=== PATIENT | male | born 1945 | race Caucasian/White ===

== ENCOUNTER 2017-07-22 13:37 | Inpatient (IN) | payer OTHER ==
[~2017-07-22] VITALS: Ht 172.7 cm; Wt 80.3 kg
[2017-07-22] MEDS ORDERED: KRILL OIL 5001 EACH PO (14:22)
[2017-07-22] MEDS ORDERED: GLUCOSAMINE, CH1 TAB PO (14:23)
[2017-07-22] MEDS ORDERED: VITAMIN FLUSH-F1 CAP PO (14:24)
[2017-07-22] MEDS ORDERED: CALCIUM CARBON650 M2 PO (14:25)
[2017-07-22] MEDS ORDERED: PRILOSEC 20MG20 MG PO (14:26)
[2017-07-22] MEDS ORDERED: PRINIVIL5 MG PO (14:27)
[2017-07-22 14:28] LABS: BASO % 0.4 % (0.0-2.0); EOS # 0.1 (0.0-0.7); EOS % 0.6 % (0-4.0); GRAN # 7.9 (1.4-6.5); GRAN % 80.7 % (42.2-75.2); HEMATOCRIT 45.8 % (42.0-52.0); HEMOGLOBIN 15.9 g/dl (13.5-18.0); LYMPH % 9.9 % (20.0-51.0); MEAN CELL VOLUME 96 fl (80.0-100.0); MEAN CORPUSCULAR HEMOGLOBIN 33 pg (27.0-31.0); MEAN CORPUSCULAR HGB CONC 35 g/dl (33.0-37.0); MEAN PLATELET VOLUME 9.6 fl (7.4-10.4); MONO # 0.8 (0.1-0.6); PLATELET COUNT 248 K/mm3 (130-400); RED BLOOD COUNT 4.78 M/mm3 (4.20-5.60); WHITE BLOOD COUNT 9.8 K/mm3 (4.8-10.8)
[2017-07-22 14:31] LABS: PROTHROMBIN TIME 11.4 SECONDS (9.7-12.8)
[2017-07-22 14:33] LABS: PARTIAL THROMBOPLASTIN TIME 29.1 SECONDS (26.0-37.0)
[2017-07-22 14:40] LABS: ALANINE AMINOTRANSFERASE 246 U/L (21-72); ALBUMIN 4.6 gm/dL (3.5-5.0); ALKALINE PHOSPHATASE 282 U/L (50-136); AMYLASE 538 U/L (30-110); ANION GAP 14 mmol/L (7-16); BILIRUBIN,TOTAL 5.4 mg/dL (0.0-1.0); BLOOD UREA NITROGEN 12 mg/dL (9-20); CALCIUM 9.5 mg/dL (8.4-10.2); CARBON DIOXIDE 25 mmol/L (22-30); CHLORIDE 101 mmol/L (98-107); CREATININE, serum 0.79 mg/dL (0.66-1.25); GLUCOSE 125 mg/dL (74-106); POTASSIUM 3.6 mmol/L (3.4-5.0); SODIUM 140 mmol/L (137-145); TOTAL PROTEIN 7.8 gm/dL (6.4-8.2)
[2017-07-22 15:12] LABS: TROPONIN-I < 0.012 ng/mL (0.000-0.034)
[2017-07-22 16:09] LABS: COLLECTION METHOD CLEAN CATCH
[2017-07-22 17:03] LABS: MUCOUS Present /lpf; PH 7 (5-8); SQUAMOUS EPITHELIAL None Seen /hpf; URINE APPEARANCE Clear; URINE BACTERIA None Seen /hpf; URINE BILIRUBIN Negative (NEGATIVE); URINE BLOOD Negative (NEGATIVE); URINE COLOR Amber; URINE GLUCOSE Negative (NEGATIVE); URINE KETONE 1+ (NEGATIVE); URINE LEUKOCYTE ESTERASE Negative (NEGATIVE); URINE PROTEIN(semi-quant) Negative (NEGATIVE); URINE RBC None Seen /hpf; URINE UROBILINOGEN >=4.0 mg/dL (NEGATIVE); URINE WBC 0-2 /hpf
[2017-07-22 17:17] LABS: LIPASE 12225 U/L (23-300)
[2017-07-22 21:01] VITALS: BP 115/60; PULSE 70; TEMP 98.2
[2017-07-22 21:03] VITALS: BP 115/60; PULSE 70; TEMP 98.2
[2017-07-23] VITALS (8 sets, daily range): BP systolic 112–163; BP diastolic 52–72; PULSE 59–98; TEMP 97.9–99
[2017-07-23 07:23] LABS: BASO % 0.7 % (0.0-2.0); EOS # 0.1 (0.0-0.7); EOS % 2.1 % (0-4.0); GRAN # 2.3 (1.4-6.5); GRAN % 52.6 % (42.2-75.2); HEMATOCRIT 40.1 % (42.0-52.0); LYMPH # 1.4 (1.2-3.4); LYMPH % 31.8 % (20.0-51.0); MEAN CELL VOLUME 97 fl (80.0-100.0); MEAN CORPUSCULAR HEMOGLOBIN 33 pg (27.0-31.0); MEAN CORPUSCULAR HGB CONC 34 g/dl (33.0-37.0); MEAN PLATELET VOLUME 9.7 fl (7.4-10.4); MONO # 0.6 (0.1-0.6); MONO % 12.6 % (1.7-9.3); PLATELET COUNT 211 K/mm3 (130-400); RED BLOOD COUNT 4.15 M/mm3 (4.20-5.60); WHITE BLOOD COUNT 4.4 K/mm3 (4.8-10.8)
[2017-07-23 07:41] LABS: HEMOGLOBIN 13.8 g/dl (13.5-18.0)
[2017-07-23 07:45] LABS: ADJUSTED CALCIUM 9.4 mg/dL (8.4-10.2); ALBUMIN 3.7 gm/dL (3.5-5.0); BILIRUBIN,TOTAL 2.8 mg/dL (0.0-1.0); CALCIUM 9.2 mg/dL (8.4-10.2); CREATININE, serum 0.73 mg/dL (0.66-1.25); POTASSIUM 4.2 mmol/L (3.4-5.0); TOTAL PROTEIN 6.3 gm/dL (6.4-8.2)
[2017-07-23 21:35] LABS: BASO % 0.2 % (0.0-2.0); GRAN # 9.2 (1.4-6.5); GRAN % 83.4 % (42.2-75.2); HEMATOCRIT 41.6 % (42.0-52.0); HEMOGLOBIN 14.2 g/dl (13.5-18.0); LYMPH # 0.8 (1.2-3.4); LYMPH % 7.3 % (20.0-51.0); MEAN CELL VOLUME 97 fl (80.0-100.0); MEAN CORPUSCULAR HEMOGLOBIN 33 pg (27.0-31.0); MEAN CORPUSCULAR HGB CONC 34 g/dl (33.0-37.0); MEAN PLATELET VOLUME 9.3 fl (7.4-10.4); MONO % 8.7 % (1.7-9.3); PLATELET COUNT 220 K/mm3 (130-400); RED BLOOD COUNT 4.31 M/mm3 (4.20-5.60)
[2017-07-23 21:45] LABS: ADJUSTED CALCIUM 9.5 mg/dL (8.4-10.2); ALBUMIN 3.5 gm/dL (3.5-5.0); BILIRUBIN,TOTAL 7.2 mg/dL (0.0-1.0); CALCIUM 9.1 mg/dL (8.4-10.2); CREATININE, serum 0.86 mg/dL (0.66-1.25); POTASSIUM 4.2 mmol/L (3.4-5.0); TOTAL PROTEIN 6.6 gm/dL (6.4-8.2)
[2017-07-24 00:03] VITALS: BP 129/69; PULSE 92; TEMP 98
[2017-07-24 03:47] VITALS: BP 108/60; PULSE 74; TEMP 98.9
[2017-07-24 08:48] VITALS: BP 122/68; PULSE 82; TEMP 98.8
[2017-07-24 11:48] VITALS: BP 130/59; PULSE 83; TEMP 98.2
[2017-07-24 14:23] LABS: ADD PATHOLOGY DIFF REVIEW NO
[2017-07-24 14:36] LABS: ADJUSTED CALCIUM 9.3 mg/dL (8.4-10.2); ALBUMIN 3.6 gm/dL (3.5-5.0); BILIRUBIN,TOTAL 7.2 mg/dL (0.0-1.0); CREATININE, serum 0.67 mg/dL (0.66-1.25); TOTAL PROTEIN 6.7 gm/dL (6.4-8.2)
[2017-07-24 14:46] LABS: HEMATOCRIT 40.5 % (42.0-52.0); HEMOGLOBIN 13.8 g/dl (13.5-18.0); MEAN CELL VOLUME 98 fl (80.0-100.0); MEAN CORPUSCULAR HEMOGLOBIN 33 pg (27.0-31.0); MEAN CORPUSCULAR HGB CONC 34 g/dl (33.0-37.0); MEAN PLATELET VOLUME 9.6 fl (7.4-10.4); PLATELET COUNT 199 K/mm3 (130-400); RED BLOOD COUNT 4.14 M/mm3 (4.20-5.60); WHITE BLOOD COUNT 7.8 K/mm3 (4.8-10.8)
[2017-07-24 16:19] VITALS: BP 131/69; PULSE 82; TEMP 98.6
[2017-07-24 17:03] LABS: LYMPHOCYTE 16 % (20.0-51.0); NEUTROPHILS 79 % (42.0-75.2); TOTAL CELLS COUNTED 100
[2017-07-24 17:04] LABS: PLATELET ESTIMATE NORMAL (NORMAL)
== END 2017-07-24 19:45 | disposition short-term general hospital (02) | DRG 439 ==
LOC: COL.ER 13:37 → MEDICAL 16:48
PROVIDERS: Emergency Medicine; Internal Medicine; Internal Medicine Gastroenterology; Physician Assistant; Surgery
PROC: 0FJB8ZZ Inspection of Hepatobiliary Duct, Via Natural or Artificial Opening Endoscopic (ICD-10-PCS; 2017-07-23)
PROC: 0FJD8ZZ Inspection of Pancreatic Duct, Via Natural or Artificial Opening Endoscopic (ICD-10-PCS; principal; 2017-07-23 09:00)
DX: K85.10 Biliary acute pancreatitis without necrosis or infection (principal); K83.0 Cholangitis; K82.8 Other specified diseases of gallbladder; I10 Essential (primary) hypertension; F17.210 Nicotine dependence, cigarettes, uncomplicated
CPT/HCPCS: 99222-AI; 99231-AI; 99233-AI; 99239; C1769; J1650; J2270; J2405; J2543; J2704; J2765; J3010; J7030; J7050; Q9967

== ENCOUNTER → 2019-03-15 | Outpatient (CLI) | payer MEDICARE ==
[~2019-03-15] MED LIST: CALCIUM CARBON650 M2 PO; GLUCOSAMINE, CH1 TAB PO; KRILL OIL 5001 EACH PO; PRILOSEC 20MG20 MG PO; PRINIVIL5 MG PO; VITAMIN FLUSH-F1 CAP PO
== END ==
LOC: COL.RAD 09:25
DX: C79.51 Secondary malignant neoplasm of bone (principal); N32.9 Bladder disorder, unspecified; R93.41 Abnormal radiologic findings on diagnostic imaging of renal pelvis, ureter, or bladder
CPT/HCPCS: A9503

== ENCOUNTER 2019-03-23 10:47 | Day surgery (SDC) | payer MEDICARE ==
[~2019-03-23] VITALS: Ht 172.7 cm; Wt 84.3 kg
[2019-03-23] VITALS (9 sets, daily range): BP systolic 126–169; BP diastolic 44–85; PULSE 64–89; TEMP 97.6–98.7
[2019-03-23] MEDS ORDERED: ROXICODONE 55 MG/TAB PO (11:40)
[2019-03-23] MEDS ORDERED: ZOLOFT 50MG50 MG PO (11:41)
[2019-03-23] MEDS ORDERED: NIACIN 64 MG-501 TA1 (11:43)
[2019-03-23] MEDS ORDERED: multivitamin capsule PO (11:46)
[2019-03-23] MEDS ORDERED: MULTIPLE VITAMI1 CAP PO (11:47)
[2019-03-23] MEDS ORDERED: ZYRTEC 10MG10 MG PO (11:49)
[2019-03-23] MEDS ORDERED: VIAGRA 25MG TAB25 MG PO (11:50)
[2019-03-23] MEDS ORDERED: [UNRECOGNIZED DRUG - OTHER] PO (11:52)
[2019-03-23] MEDS ORDERED: PRIL40 PO (11:54)
[2019-03-23] MEDS ORDERED: GLUCOSAMINE SU500 M2 PO (11:55)
[2019-03-23] MEDS ORDERED: OMEGA-31 SGL PO (11:56)
[2019-03-23] MEDS ORDERED: VOLTAREN GEL 1%1 TU TP (11:57)
[2019-03-23] MEDS ORDERED: XALATAN EYE DROPS OU (11:57)
[2019-03-24 03:49] VITALS: BP 149/86; PULSE 68; TEMP 98.2
[2019-03-24 10:54] VITALS: BP 154/70; PULSE 71; TEMP 97.8
== END 2019-03-24 11:00 | disposition home or self-care (01) ==
LOC: SDCO 10:47 → JCC 16:41 → SDCO 03-24 11:00
DX: C67.2 Malignant neoplasm of lateral wall of bladder (principal); E78.00 Pure hypercholesterolemia, unspecified; I10 Essential (primary) hypertension; G47.33 Obstructive sleep apnea (adult) (pediatric); K21.9 Gastro-esophageal reflux disease without esophagitis; E78.5 Hyperlipidemia, unspecified; M19.90 Unspecified osteoarthritis, unspecified site; G89.29 Other chronic pain; F32.9 Major depressive disorder, single episode, unspecified; M54.5 Low back pain; Z90.49 Acquired absence of other specified parts of digestive tract; Z80.9 Family history of malignant neoplasm, unspecified; Z82.49 Family history of ischemic heart disease and other diseases of the circulatory system; Z84.1 Family history of disorders of kidney and ureter; Z87.891 Personal history of nicotine dependence; Z88.6 Allergy status to analgesic agent
CPT/HCPCS: OP; C1769; C2617; J0360; J0690; J1100; J2405; J2704; J3010; J7120; Q9967; Q9968

== ENCOUNTER → 2019-04-12 | Outpatient (CLI) | payer MEDICARE, OTHER ==
[~2019-04-12] MED LIST changes: +CALCIUM CITRAT200 M2 PO; +CBD PO; +GLUCOSAMINE SU500 M2 PO; +MULTIPLE VITAMI1 CAP PO; +NATURE'S BLEND600 M2 PO; +NIACIN 64 MG-501 TA1; +OMEGA-31 SGL PO; +OPTIFLEX-C 4001 CAP PO; +PERCOCET 325 MG1 TA3 PO; +PRIL40 PO; +ROXICODONE 55 MG/TAB PO; +VIAGRA 25MG TAB25 MG PO; +VOLTAREN GEL 1%1 TU TP; +XALATAN EYE DROPS OU; +ZOLOFT 50MG50 MG PO; +ZYRTEC 10MG10 MG PO; +[UNRECOGNIZED DRUG - OTHER] PO; +multivitamin capsule PO
== END ==
LOC: COL.RAD 08:37
DX: C67.2 Malignant neoplasm of lateral wall of bladder (principal); C79.51 Secondary malignant neoplasm of bone; I63.89 Other cerebral infarction
CPT/HCPCS: A9585

== ENCOUNTER 2019-05-08 07:20 | Day surgery (SDC) | payer MEDICARE ==
[~2019-05-08] VITALS: Ht 172.7 cm; Wt 74.0 kg
[2019-05-08] MEDS ORDERED: OMEGA-3 1000 MG1 CAP PO (07:51)
[2019-05-08] MEDS ORDERED: MELATONIN5 M1 PO (07:53)
[2019-05-08] MEDS ORDERED: FENTANYL 50MCG TD (07:56)
[2019-05-08 08:07] VITALS: BP 114/73; PULSE 89; TEMP 97.8
--- NOTE | 2019-05-08 08:16 | NUR ---
TO RM AT 0732- CALL LIGHT IN REACH AT BEDSIDE.
--- NOTE | 2019-05-08 10:14 | NUR ---
AMBULATED TO BATHROOM
[2019-05-08 11:50] VITALS: BP 130/70; PULSE 79
--- NOTE | 2019-05-08 11:50 | NUR ---
TO RM 2 PER CART FROM O.R.. ALERT ORIENTED X3, TALKING TO STAFF AND FAMILY. PATIENT EAGER TO GO HOME. RECEIVED WATER. ALBARRAN SET OVER INCISION SITE. C/O GENERALIZED BACK PAIN ON ADMISSION. DENIES NAUSEA
[2019-05-08 12:05] VITALS: BP 148/79; PULSE 77
--- NOTE | 2019-05-08 12:05 | NUR ---
RECEIVED VANILLA PUDDING AND ATE 100%
--- NOTE | 2019-05-08 12:20 | NUR ---
AMBULATED TO BATHROOM VOIDED AND TOLERATED WELL.
--- NOTE | 2019-05-08 12:35 | NUR ---
RECEIVED DISCHARGE INSTRUCTIONS AND VERBALIZED UNDERSTANDING. DISCONTINUED IV AND INT- CATHETER INTACT.
--- NOTE | 2019-05-08 12:45 | NUR ---
DISCHARGED PER WC BY NURSING STAFF TO PRIVATE CAR IN CARE OF HIS - PRATIK
== END 2019-05-08 13:18 | disposition home or self-care (01) ==
LOC: SDCO 07:20
DX: C67.9 Malignant neoplasm of bladder, unspecified (principal); C79.49 Secondary malignant neoplasm of other parts of nervous system; I10 Essential (primary) hypertension; E78.00 Pure hypercholesterolemia, unspecified; K21.9 Gastro-esophageal reflux disease without esophagitis; F17.220 Nicotine dependence, chewing tobacco, uncomplicated; G47.33 Obstructive sleep apnea (adult) (pediatric); M19.90 Unspecified osteoarthritis, unspecified site; G89.29 Other chronic pain; F32.9 Major depressive disorder, single episode, unspecified; M54.5 Low back pain; Z90.49 Acquired absence of other specified parts of digestive tract; Z88.6 Allergy status to analgesic agent; Z86.73 Personal history of transient ischemic attack (TIA), and cerebral infarction without residual deficits; Z92.3 Personal history of irradiation; Z82.49 Family history of ischemic heart disease and other diseases of the circulatory system; Z80.9 Family history of malignant neoplasm, unspecified
CPT/HCPCS: C1788; J0690; J1644; J2405; J2704; J3010; J7120

== ENCOUNTER 2019-09-04 12:49 | Day surgery (SDC) | payer OTHER ==
[~2019-09-04] VITALS: Ht 167.6 cm; Wt 65.4 kg
[2019-09-04] VITALS (7 sets, daily range): BP systolic 119–160; BP diastolic 52–69; PULSE 73–100; TEMP 97.4–99.7
[~2019-09-04 12:49] MED LIST changes: +FENTANYL 50MCG TD; +MELATONIN5 M1 PO; +OMEGA-3 1000 MG1 CAP PO
[2019-09-04] MEDS ORDERED: FLOMAX 0.40.4 MG/CAP PO (13:58)
[2019-09-04] MEDS ORDERED: ZOFRAN8 MG PO (13:59)
[2019-09-04] MEDS ORDERED: CALCIUM 600-D 61 TAB PO (14:01)
[2019-09-04] MEDS ORDERED: CBD OIL PO (14:02)
[2019-09-04] MEDS ORDERED: KRILL OIL 5001 EACH PO (14:02)
[2019-09-04] MEDS ORDERED: DAZIDOX10 MG PO (14:03)
[2019-09-04] MEDS ORDERED: ELIQUIS 5MG PO (14:04)
[2019-09-04] MEDS ORDERED: COMPAZINE 110 MG/TAB PO (14:05)
[2019-09-04] MEDS ORDERED: ZOLOFT 100MG100 MG PO (14:06)
[2019-09-04] MEDS ORDERED: CENTRUM SILVER1 CTB PO (14:07)
[2019-09-04] MEDS ORDERED: NATURE'S BLEND600 M2 PO (14:07)
[2019-09-04] MEDS ORDERED: MELATONIN5 M1 PO (14:08)
[2019-09-04] MEDS ORDERED: MYRBETR50MG PO (14:09)
[2019-09-04] MEDS ORDERED: NIACIN 64 MG-501 TA1 PO (14:09)
[2019-09-04] MEDS ORDERED: SENOKOT8.6 MG PO (14:10)
[2019-09-04] MEDS ORDERED: MIRALAX119G PO (14:10)
[2019-09-04] MEDS ORDERED: XALATAN EYE DROPS OU (14:11)
[2019-09-04] MEDS ORDERED: TYLENOL 325MG325 MG PO (14:12)
--- NOTE | 2019-09-04 14:15 | NUR ---
TO RM AT 1303- CALL LIGHT IN REACH AT BEDSIDE
--- NOTE | 2019-09-04 16:15 | NUR ---
TO RM 4 PER CART FROM PACU. ALERT ORIETNED X 3, TALKING WITH STAFF AND . AMBULATED TO BATHROOM AND VOIDED ABOUT 10CC WITH 3 INCH THIN CLOT. AMBULATED BACK TO BED AND RECEIVED WARM BLANKETS.
--- NOTE | 2019-09-04 16:30 | NUR ---
RECEIVED GLASS OF WATER AND JASMIN
--- NOTE | 2019-09-04 16:30 | NUR ---
OFFICE CALLED FOR FOLLOW UP. OFFICE STATED THEY WOULD CALL PATENT FOR A FOLLOW UP.
--- NOTE | 2019-09-04 16:45 | NUR ---
TO BATHROOM AGAIN AND STATED HE THOUGHT HE COULD HAVE A BOWEL MOVEMENT.
--- NOTE | 2019-09-04 16:50 | NUR ---
VOIDED 25CC BLOODY URINE AND NO BOWEL MOVEMENT.
--- NOTE | 2019-09-04 16:54 | NUR ---
RESTING IN BED DRINKING 2ND GLASS OF WATER.
--- NOTE | 2019-09-04 17:00 | NUR ---
RESTING AND DRINKING WATER.
--- NOTE | 2019-09-04 17:22 | NUR ---
ATE 100% AND TOLERATED WELL.
--- NOTE | 2019-09-04 17:30 | NUR ---
VOIDED 100CC HEMATURIA. DR RODRIGUEZ UPDATED. PATIENT C/O THE URGE TO VOID,BUT NOT FILLING FULL. DISCUSSED AND DECIDED, PATIENT TO BE DISCHARGED WITHOUT THE MARTINEZ CATHETER. C/O BURING UPON URINEATION.
--- NOTE | 2019-09-04 17:50 | NUR ---
RECEIVED DISCHARGE INSTRUCTIONS AND VERBALIZED UNDERSTANDING. FLUSHED PORT WITH NS 10CC FOLLOWED BY HEPARIN 500UNITS AND COVERED WITH BANDAIDE. PATIENT GETTING DRESSED WHILE WENT TO GET THE CAR.
--- NOTE | 2019-09-04 18:07 | NUR ---
DISCHARGED PER WC BY NURSING STAFF TO PRIVATE CAR IN CARE OF - PRATIK.
== END 2019-09-04 18:17 | disposition home or self-care (01) ==
LOC: SDCO 12:49
DX: N13.5 Crossing vessel and stricture of ureter without hydronephrosis (principal); E78.00 Pure hypercholesterolemia, unspecified; E78.5 Hyperlipidemia, unspecified; I10 Essential (primary) hypertension; G89.29 Other chronic pain; M19.90 Unspecified osteoarthritis, unspecified site; F32.9 Major depressive disorder, single episode, unspecified; Z92.21 Personal history of antineoplastic chemotherapy; Z92.3 Personal history of irradiation; Z90.49 Acquired absence of other specified parts of digestive tract; Z79.01 Long term (current) use of anticoagulants; Z88.8 Allergy status to other drugs, medicaments and biological substances; Z87.891 Personal history of nicotine dependence; G47.33 Obstructive sleep apnea (adult) (pediatric); Z86.711 Personal history of pulmonary embolism; Z86.73 Personal history of transient ischemic attack (TIA), and cerebral infarction without residual deficits; Z82.49 Family history of ischemic heart disease and other diseases of the circulatory system; Z80.9 Family history of malignant neoplasm, unspecified
CPT/HCPCS: C1769; C2617; J1100; J1644; J2370; J2405; J2704; J3010; J7030

== ENCOUNTER 2019-10-25 08:46 | Inpatient (IN) | payer OTHER ==
[~2019-10-25] VITALS: Ht 172.7 cm; Wt 59.7 kg
[2019-10-25] VITALS (133 sets, daily range): BP systolic 94–127; BP diastolic 48–89; PULSE 62–102; TEMP 97.8–98.8; O2SAT 98–100
[~2019-10-25 08:46] MED LIST changes: +CALCIUM 600-D 61 TAB PO; +CBD OIL PO; +CENTRUM SILVER1 CTB PO; +COMPAZINE 110 MG/TAB PO; +DAZIDOX10 MG PO; +ELIQUIS 5MG PO; -FENTANYL 50MCG TD; +FENTANYL 75MCG TD; +FLOMAX 0.40.4 MG/CAP PO; +MIRALAX119G PO; +MYRBETR50MG PO; +NIACIN 64 MG-501 TA1 PO; +SENOKOT8.6 MG PO; +TYLENOL 325MG325 MG PO; +ZOFRAN8 MG PO; +ZOLOFT 100MG100 MG PO
--- NOTE | 2019-10-25 09:15 | NUR ---
PT ARRIVED FROM [facility] BY PRIVATE CAR. PT TRASFERED BY WHEELCHAIR. PT UP TO BED. PT ATTATCHED TO ICU MONITORING. PT SHOWING SR ON TELE. PT SATING WELL ON RA. PT HAS THE URGE TO VOID BUT ONLY ABLE TO PASS A FEW DROPS OF BLOODY URINE. PT BLADDER SCANNED WITH A RESULT OF 163. NOTIFIED OF ARRIVAL. NOTIFIED OF ARRIVAL AND ORDER RECEIVED TO PLACE 18F COUDE MARTINEZ CATH. 1000: CATHETER PLACED AND DARK BLODDY URINE RETURNED AND PT STATES HE FEELS BETTER. RIC ZUNIGA BEDSIDE TO DISCUSS WITH PT AND FAMILY PLAN FOR CYSTOSCOPY LATER TODAY. CONSENT SIGNED. PT COMPLAINING OF PAIN, NOTIFIED AND ORDERS RECEIVED FOR PRN MORPHINE. PT ORIENTED TO ROOM AND FLOOR. PT INSTRUCTED TO CALL WITH ALL NEEDS AND NOT TO GET UP ALONE. 1120: BEDSIDE
[2019-10-25] MEDS ORDERED: ATIVAN 0.50.5 MG/TAB PO (11:14)
--- NOTE | 2019-10-25 12:06 | NUR ---
PT TO OR FOR CYSTOSCOPY.
--- NOTE | 2019-10-25 12:47 | NUR ---
REPORT CALLED TO FIRE OBSERVER. ALL QUESTIONS ANSWERED. PT STILL IN OR AND WILL TRANSFER TO 350 AFTER.
[2019-10-25 15:24] LABS: MEAN CELL VOLUME 94 fl (80.0-100.0); MEAN CORPUSCULAR HGB CONC 32 g/dl (33.0-37.0); MEAN PLATELET VOLUME 11.4 fl (7.4-10.4); PLATELET COUNT 53 K/mm3 (130-400); RED BLOOD COUNT 2.72 M/mm3 (4.20-5.60); REDCELL DISTRIBUTION WIDTH-CV 16.3 % (11.5-14.5)
[2019-10-25 15:26] LABS: HEMATOCRIT 25.5 % (42.0-52.0); HEMOGLOBIN 8.2 g/dl (13.5-18.0); MEAN CORPUSCULAR HEMOGLOBIN 30 pg (27.0-31.0)
[2019-10-25 15:29] LABS: INR 1.3 (0.8-3.0); PROTHROMBIN TIME 15.6 SECONDS (9.7-12.8)
[2019-10-25 15:40] LABS: ALBUMIN 2.6 gm/dL (3.5-5.0); BAND 7 % (0-10); BILIRUBIN,TOTAL 0.4 mg/dL (0.0-1.0); CALCIUM 7.1 mg/dL (8.4-10.2); CREATININE, serum 2.39 (0.66-1.25); LYMPHOCYTE 6 % (20.0-51.0); MAGNESIUM 2.6 mg/dL (1.6-2.3); MYELOCYTE 1 % (0-0); NEUTROPHILS 85 % (42.0-75.2); TOTAL PROTEIN 5.2 gm/dL (6.4-8.2)
[2019-10-25 15:41] LABS: HYPOCHROMIA 1+
[2019-10-25] MEDS ORDERED: DECADRON 4MG TAB4 MG PO (16:53)
--- NOTE | 2019-10-25 18:00 | NUR ---
Patient got back from surgery at 1410. He has been resting comfortably at this time. Denies nausea and pain. His was here and has since gone home. His medication list from home has been updated. CBI flowing moderately. Urine is pink with no clots. No other changes at this time. Call light within reach.
[2019-10-26] VITALS (7 sets, daily range): BP systolic 97–122; BP diastolic 46–59; PULSE 59–74; TEMP 97.4–99
--- NOTE | 2019-10-26 03:24 | NUR ---
Patient doing well tonight. has been resting comfortably. denies pain. CBI infusing at a moderate rate, urine output is pink and clear with no clots noted. IV fluids infusing into R chest port. no further needs at this time. will continue to monitor.
[2019-10-26 06:17] LABS: CREATININE, serum 2.29 (0.66-1.25); MAGNESIUM 2.7 mg/dL (1.6-2.3); POTASSIUM 4.4 mmol/L (3.4-5.0)
[2019-10-26 06:39] LABS: MEAN CELL VOLUME 97 fl (80.0-100.0); MEAN CORPUSCULAR HGB CONC 31 g/dl (33.0-37.0); MEAN PLATELET VOLUME 11.1 fl (7.4-10.4); RED BLOOD COUNT 2.68 M/mm3 (4.20-5.60); REDCELL DISTRIBUTION WIDTH-CV 17.2 % (11.5-14.5)
[2019-10-26 06:42] LABS: HEMATOCRIT 25.9 % (42.0-52.0); HEMOGLOBIN 8.1 g/dl (13.5-18.0); MEAN CORPUSCULAR HEMOGLOBIN 30 pg (27.0-31.0)
[2019-10-26 06:43] LABS: PLATELET COUNT 48 K/mm3 (130-400)
[2019-10-26 07:16] LABS: BAND 19 % (0-10); LYMPHOCYTE 4 % (20.0-51.0); METAMYELOCYTE 1 % (0-0); NEUTROPHILS 75 % (42.0-75.2); PLATELET ESTIMATE DECREASED (NORMAL)
--- NOTE | 2019-10-26 07:51 | NUR ---
Notified Hospitalist of critical labs.
--- NOTE | 2019-10-26 08:30 | NUR ---
Patient in bed resting. Alert and oriented x 3. Assessment complete. Patient states he does not remember having his procedure done yesterday. Patel to dependent drainage with CBI infusing at a fast rate, urine remains pink in color. Port to right chest with fluids infusing per orders. Denies further needs at this time. Denies pain at this time.
--- NOTE | 2019-10-26 09:15 | NUR ---
Contacted Eren ZUNIGA about mitomycin orders, patient will not be recieving mitomycin.
--- NOTE | 2019-10-26 09:38 | NUR ---
Initial visit; Patient and his thanked Camp Director for looking in on him and offering God's blessings.
--- NOTE | 2019-10-26 15:47 | NUR ---
[employer] Administrator met with patient and patient's Ana Laura (ph#[phone]) to discuss discharge planning. Patient lives in [place] with his . Patient sees Dr. Marge Yee for primary care and obtains medications from [facility] with no difficulties. Patient uses a CPAP and also has a walker he uses as needed. Patient reports independence with ADLS. Patient also states he has DPOA-HC set up. Patient plans to return home upon discharge. SW to continue to follow as needed.
--- NOTE | 2019-10-26 18:45 | NUR ---
Patient has done well throughout the day. Has been up ambulating in halls, steady gait with walker. Sat up in recliner for meals today. CBI infusing at a slow rate, urine remains pink/peach in color. Denies pain or further needs at this time. Reported off to gunstock repairer.
--- NOTE | 2019-10-26 21:39 | NUR ---
Pt doing well. Alert and oriented with VSS. PT has port to [facility] with NS running. CBI running on low. URine is pink-tinge and clear. Tolerating well. PT took pm meds with no difficulty. Pt denies pain at this time. CAll light within reach, will continue to monitor
--- NOTE | 2019-10-27 00:50 | NUR ---
Pt resting in bed, CBI running slowly. Urine is clear and pink tinged. Call light within reach, will continue to monitor
[2019-10-27 03:02] VITALS: BP 109/58; PULSE 65; TEMP 97.9
--- NOTE | 2019-10-27 05:37 | NUR ---
Pt loera primed and pulled. Filled bladder with 250cc of CBI and took out loera. PT voided very small amount of 20cc or bloody urine shortly after.
[2019-10-27 07:22] VITALS: BP 125/63; PULSE 70; TEMP 98.7
--- NOTE | 2019-10-27 08:00 | NUR ---
Patient in bed resting. Alert and oriented x 3. Spouse at bedside. Assessment complete. Patient doing 6 cup routine. Has been voiding small amounts of urine each time. Fluids continue infusing to right chest port. Denies further needs a this time.
[2019-10-27 08:10] LABS: BASO % 0.2 % (0.0-2.0); EOS % 0.8 % (0-4.0); GRAN # 4.1 (1.4-6.5); LYMPH # 0.4 (1.2-3.4); LYMPH % 7.2 % (20.0-51.0); MEAN CELL VOLUME 96 fl (80.0-100.0); MEAN CORPUSCULAR HGB CONC 31 g/dl (33.0-37.0); MEAN PLATELET VOLUME 11.9 fl (7.4-10.4); MONO # 0.2 (0.1-0.6); MONO % 4.6 % (1.7-9.3); PLATELET COUNT 55 K/mm3 (130-400); RED BLOOD COUNT 2.52 M/mm3 (4.20-5.60); REDCELL DISTRIBUTION WIDTH-CV 17.1 % (11.5-14.5)
[2019-10-27 08:18] LABS: CALCIUM 6.6 mg/dL (8.4-10.2); CREATININE, serum 1.26 (0.66-1.25); POTASSIUM 3.6 mmol/L (3.4-5.0)
[2019-10-27 08:23] LABS: HEMATOCRIT 24.2 % (42.0-52.0); HEMOGLOBIN 7.6 g/dl (13.5-18.0); MEAN CORPUSCULAR HEMOGLOBIN 30 pg (27.0-31.0)
[2019-10-27 09:06] LABS: COLLECTION METHOD CATHETER
[2019-10-27 10:06] LABS: PH 6 (5-8); SQUAMOUS EPITHELIAL None Seen /hpf; URINE APPEARANCE Hazy; URINE BACTERIA Rare /hpf; URINE BILIRUBIN Negative (NEGATIVE); URINE BLOOD 3+ (NEGATIVE); URINE COLOR Red; URINE GLUCOSE Negative (NEGATIVE); URINE KETONE Negative (NEGATIVE); URINE LEUKOCYTE ESTERASE 1+ (NEGATIVE); URINE NITRATE Negative (NEGATIVE); URINE PROTEIN(semi-quant) 2+ (NEGATIVE); URINE RBC >50 /hpf; URINE UROBILINOGEN Negative (NEGATIVE)
--- NOTE | 2019-10-27 10:30 | NUR ---
Patient up ambulating in halls with spouse, steady gait with walker.
--- NOTE | 2019-10-27 11:04 | NUR ---
Patient called out to nurses station, states he is having mild pain to bilteral hips after ambulating in halls. Requested tylenol, given per orders. Deneis further needs at this time. Will continue to monitor.
[2019-10-27 12:07] VITALS: BP 125/64; PULSE 77; TEMP 98.9
--- NOTE | 2019-10-27 14:30 | NUR ---
Discharge education provided to patient. Educated on when to call provider. All questions answered. Denies further needs at this time. Port deaccessed per protocol, heparinized. Patient out with spouse and surgical staff by wheelchair.
== END 2019-10-27 14:30 | disposition home or self-care (01) | DRG 662 ==
LOC: ICU 08:46 → SDCO 08:46 → ICU 08:52 → SURG 09:25 → SDCO 09:25 → SURG 12:55 → SDCO 16:00 → SURG 10-26 05:57
PROVIDERS: Physician Assistant; Urology; ADMIT Internal Medicine
PROC: 0TCB8ZZ Extirpation of Matter from Bladder, Via Natural or Artificial Opening Endoscopic (ICD-10-PCS; 2019-10-25)
PROC: 0W3R8ZZ Control Bleeding in Genitourinary Tract, Via Natural or Artificial Opening Endoscopic (ICD-10-PCS; principal; 2019-10-25 16:00)
DX: C67.9 Malignant neoplasm of bladder, unspecified (principal); E43 Unspecified severe protein-calorie malnutrition; N17.9 Acute kidney failure, unspecified; R31.9 Hematuria, unspecified; G89.29 Other chronic pain; I10 Essential (primary) hypertension; E78.5 Hyperlipidemia, unspecified; D64.9 Anemia, unspecified; D69.6 Thrombocytopenia, unspecified; Z86.73 Personal history of transient ischemic attack (TIA), and cerebral infarction without residual deficits; Z92.21 Personal history of antineoplastic chemotherapy; Z98.42 Cataract extraction status, left eye; Z98.41 Cataract extraction status, right eye; Z79.01 Long term (current) use of anticoagulants; Z79.891 Long term (current) use of opiate analgesic; Z87.891 Personal history of nicotine dependence; Z88.8 Allergy status to other drugs, medicaments and biological substances; Z85.828 Personal history of other malignant neoplasm of skin; Z68.20 Body mass index [BMI] 20.0-20.9, adult
CPT/HCPCS: 99222-AI; 99231-AI; 99239; J2270; J2370; J2405; J2704; J7030; J8540